=== PATIENT | female | born 1985 | race African-American/Black ===

== ENCOUNTER 2017-11-21 11:50 | Emergency (ER) | payer MEDICAID ==
[~2017-11-21] VITALS: Ht 172.7 cm; Wt 87.1 kg
[2017-11-21] MEDS ORDERED: KETOROLAC TROMETH 60MG/2ML VIAL IM ONE (13:30)
[2017-11-21 13:31] VITALS: BP 116/57
== END 2017-11-21 15:30 | disposition home or self-care (01) ==
LOC: ER 11:50
DX: M25.50 Pain in unspecified joint (principal); E66.01 Morbid (severe) obesity due to excess calories; Z68.29 Body mass index [BMI] 29.0-29.9, adult; Z88.8 Allergy status to other drugs, medicaments and biological substances
CPT/HCPCS: 73552; 96372; 99284; J1885